=== PATIENT | female | born 1990 | race Caucasian/White ===

== ENCOUNTER → 2017-02-01 | Outpatient (CLI) | payer OTHER ==
[~2017-02-01] MED LIST: AMOX1TAB64 PO; CIPR500T3 PO; DOCU-30 PO; HYDR-3138 PO; HYDR-3240 PO; TAMS-11 PO; no meds per pt
== END | disposition home or self-care (01) ==
LOC: CFH 12:15
PROVIDERS: ATTEND Internal Medicine Nephrology
DX: N18.1 Chronic kidney disease, stage 1 (principal); D63.1 Anemia in chronic kidney disease; N13.30 Unspecified hydronephrosis; G89.4 Chronic pain syndrome
CPT/HCPCS: 76770

== ENCOUNTER 2020-02-24 16:15 | Outpatient (CLI) | payer OTHER ==
[~2020-02-24] VITALS: Ht 162.6 cm; Wt 70.4 kg
[~2020-02-24 16:15] MED LIST changes: +DOCU-131 PO; -DOCU-30 PO; -HYDR-3138 PO; +HYDR-3237 PO
[2020-02-24 16:53] VITALS: BP 108/60
[2020-02-24 17:32] LABS: MICROSCOPIC INDICATED
[2020-02-24 17:42] LABS: AMPHETAMINE SCREEN, URINE Negative (Negative); BARBITURATE SCREEN, URINE Negative (Negative); BENZODIAZEPINE SCREEN, URINE Negative (Negative); CANNABINOID SCREEN, URINE Negative (Negative); METHADONE SCREEN, URINE Negative (Negative); OPIATE SCREEN, URINE Negative (Negative)
[2020-02-24 17:43] LABS: COCAINE SCREEN, URINE Negative (Negative)
[2020-02-24] MEDS ORDERED: FERR324T18 PO ×2 (18:02→18:03)
[2020-02-24] MEDS ORDERED: PREN1TAB10 PO (18:02)
== END 2020-02-24 18:19 | disposition home or self-care (01) ==
LOC: LDOP 16:15
PROVIDERS: ATTEND Obstetrics & Gynecology
DX: O46.8X2 Other antepartum hemorrhage, second trimester (principal); Z3A.26 26 weeks gestation of pregnancy
CPT/HCPCS: 59025; 80307; 81001; 87086; 99211; G0463

== ENCOUNTER 2020-05-25 08:00 | Outpatient (CLI) | payer OTHER ==
[~2020-05-25 08:00] MED LIST changes: +FERR324T18 PO; +PREN1TAB10 PO
== END 2020-05-25 23:59 | disposition home or self-care (01) ==
LOC: LDOP 08:00
PROVIDERS: ATTEND Obstetrics & Gynecology
DX: Z01.818 Encounter for other preprocedural examination (principal); Z11.59 Encounter for screening for other viral diseases
CPT/HCPCS: 36415; 87635

== ENCOUNTER 2020-05-29 18:49 | Inpatient (IN) | payer BC, OTHER ==
[~2020-05-29] VITALS: Ht 162.6 cm; Wt 76.8 kg
[2020-06-03] MEDS ORDERED: OXYTOCIN 30U/ 0.9% NaCL 500ML 500 ML IV ONE (08:07)
[2020-06-03] MEDS ORDERED: OXYTOCIN 30U/ 0.9% NaCL 500ML 500 ML IV PRN (08:07)
[2020-06-03 08:18] VITALS: BP 107/76
[2020-06-03] MEDS ORDERED: ALUMINUM/MAG/SIMETHICONE 30 ML UDC PO PRN (08:30)
[2020-06-03] MEDS ORDERED: SODIUM CITRATE/CITRIC ACID 30 ML UDC PO PRN (08:30)
[2020-06-03] MEDS ORDERED: FENTANYL PF 100 MCG/2ML IV PRN (08:30)
[2020-06-03] MEDS: PLEASE ENTER HEIGHT AND WEIGHT MC SCH ×2 (08:30→16:30)
[2020-06-03] MEDS ORDERED: FENTANYL PF 100 MCG/2ML IVPush PRN (08:30)
[2020-06-03] MEDS ORDERED: TERBUTALINE 1 MG/ML, 1ML SQ PRN (08:30)
[2020-06-03] MEDS ORDERED: TERBUTALINE 1 MG/ML, 1ML IVPush PRN (08:30)
[2020-06-03] MEDS ORDERED: ONDANSETRON 2MG/ML, 2ML IVPush PRN (08:30)
[2020-06-03] MEDS ORDERED: METOCLOPRAMIDE 5 MG/ML, 2ML IVPush PRN (08:30)
[2020-06-03] MEDS ORDERED: MISOPROSTOL 200 MCG TABLET ONE (08:45)
[2020-06-03] MEDS ORDERED: LIDOCAINE 1%, 20ML ONE (08:45)
[2020-06-03] MEDS ORDERED: OXYTOCIN 30U/ 0.9% NaCL 500ML 500 ML ONE (08:45)
[2020-06-03] MEDS: LACTATED RINGERS 1,000 ML IV SCH ×2 (08:57→16:07)
[2020-06-03 09:01] LABS: BASOPHILS # (AUTO) 0.03 x10^3/uL (0-0.1); BASOPHILS % (AUTO) 0 % (0-1); EOSINOPHILS # (AUTO) 0.03 x10^3/uL (0-0.4); EOSINOPHILS % (AUTO) 0 % (1-7); LYMPHOCYTES # (AUTO) 1.55 x10^3/uL (1-3.4); LYMPHOCYTES % (AUTO) 18 % (22-44); MD NO; MEAN CORPUSCULAR HEMOGLOBIN 29.7 pg (27.0-34.8); MEAN CORPUSCULAR HGB CONC 33.1 g/dL (32.4-35.8); MEAN CORPUSCULAR VOLUME 89.8 fL (80-100); MONOCYTES # (AUTO) 0.76 x10^3/uL (0.2-0.8); MONOCYTES % (AUTO) 9 % (2-9); NEUTROPHILS # (AUTO) 6.27 x10^3/uL (1.8-6.8); NEUTROPHILS % (AUTO) 73 % (42-75); PLATELET COUNT 202 x10^3/uL (130-400); RED BLOOD COUNT 3.89 x10^6/uL (3.82-5.3); RED CELL DISTRIBUTION WIDTH 12.8 % (9.6-15.2)
[2020-06-03 09:07] LABS: AMPHETAMINE SCREEN, URINE Negative (Negative); BARBITURATE SCREEN, URINE Negative (Negative); BENZODIAZEPINE SCREEN, URINE Negative (Negative); CANNABINOID SCREEN, URINE Negative (Negative); COCAINE SCREEN, URINE Negative (Negative); METHADONE SCREEN, URINE Negative (Negative); OPIATE SCREEN, URINE Negative (Negative)
[2020-06-03] MEDS ORDERED: NEWBORN KIT ONE (09:30)
[2020-06-03] MEDS: D5%-LACTATED RINGERS 1,000 ML IV SCH (16:07)
[2020-06-03] MEDS ORDERED: TERBUTALINE 1 MG/ML, 1ML ONE (19:54)
[2020-06-03] MEDS ORDERED: FENTANYL/BUPIV./NS/PF 250 ML EPIDCONT ONE (22:50)
[2020-06-03] MEDS ORDERED: LACTATED RINGERS 1,000 ML IV SCH (23:26)
[2020-06-03] MEDS ORDERED: FENTANYL/BUPIV./NS/PF 250 ML EPIDCONT SCH (23:26)
[2020-06-03] MEDS ORDERED: LACTATED RINGERS 1,000 ML IVBOLUS PRN (23:30)
[2020-06-03] MEDS ORDERED: EPHEDRINE 50 MG/ML, 1ML IVPush PRN (23:30)
[2020-06-03] MEDS ORDERED: NALOXONE 0.4 MG/ML, 1ML IVPush PRN (23:30)
[2020-06-04] MEDS: LACTATED RINGERS 1,000 ML IV SCH (00:07)
[2020-06-04] MEDS: D5%-LACTATED RINGERS 1,000 ML IV SCH ×2 (00:07→00:44)
[2020-06-04] MEDS ORDERED: EPHEDRINE 50 MG/ML, 1ML ONE (00:12)
[2020-06-04] MEDS: PLEASE ENTER HEIGHT AND WEIGHT MC SCH (00:30)
[2020-06-04] MEDS ORDERED: OXYTOCIN 30U/ 0.9% NaCL 500ML 500 ML ONE (09:40)
[2020-06-04] MEDS: OXYTOCIN 30U/ 0.9% NaCL 500ML 500 ML IV SCH ×2 (10:03→20:03)
[2020-06-04] MEDS ORDERED: ACETAMINOPHEN 325 MG TABLET ONE (10:19)
[2020-06-04] MEDS: ACETAMINOPHEN 325 MG TABLET PO PRN ×3 (10:21→20:41)
[2020-06-04] MEDS ORDERED: RHOGAM FROM BLOOD BANK 1 NOTE EA IM/IV ONE (10:30)
[2020-06-04] MEDS ORDERED: MISOPROSTOL 200 MCG TABLET PR PRN (10:30)
[2020-06-04] MEDS ORDERED: MAGNESIUM HYDROXIDE 8%, 30ML UDC PO PRN (10:30)
[2020-06-04] MEDS ORDERED: HYDROcodone/APAP 5/325 TABLET PO PRN ×2 (10:30)
[2020-06-04] MEDS ORDERED: ACETAMINOPHEN 325 MG TABLET PO PRN (10:30)
[2020-06-04] MEDS ORDERED: MEASLES,MUMPS&RUBELLA VACC/PF 0.5 ML SQ-VACC PRN (10:30)
[2020-06-04] MEDS: DOCUSATE 100 MG CAPSULE PO PRN (16:42)
[2020-06-04 17:32] LABS: BASOPHILS # (AUTO) 0.02 x10^3/uL (0-0.1); BASOPHILS % (AUTO) 0 % (0-1); EOSINOPHILS # (AUTO) 0.01 x10^3/uL (0-0.4); EOSINOPHILS % (AUTO) 0 % (1-7); LYMPHOCYTES # (AUTO) 1.29 x10^3/uL (1-3.4); LYMPHOCYTES % (AUTO) 7 % (22-44); MD SCAN; MEAN CORPUSCULAR HEMOGLOBIN 30.1 pg (27.0-34.8); MEAN CORPUSCULAR HGB CONC 33.4 g/dL (32.4-35.8); MEAN CORPUSCULAR VOLUME 90.1 fL (80-100); MEAN PLATELET VOLUME 10.3 fL (7.4-10.4); MONOCYTES # (AUTO) 0.86 x10^3/uL (0.2-0.8); MONOCYTES % (AUTO) 5 % (2-9); NEUTROPHILS # (AUTO) 16.17 x10^3/uL (1.8-6.8); NEUTROPHILS % (AUTO) 88 % (42-75); PLATELET COUNT 183 x10^3/uL (130-400); RED BLOOD COUNT 3.82 x10^6/uL (3.82-5.3); RED CELL DISTRIBUTION WIDTH 12.8 % (9.6-15.2)
[2020-06-04 20:00] VITALS: BP 105/69
[2020-06-05] VITALS: BP 102/67
[2020-06-05] MEDS: ACETAMINOPHEN 325 MG TABLET PO PRN ×3 (01:00→09:23)
[2020-06-05 04:12] VITALS: BP 100/65
[2020-06-05] MEDS: OXYTOCIN 30U/ 0.9% NaCL 500ML 500 ML IV SCH (06:03)
[2020-06-05] MEDS: DOCUSATE 100 MG CAPSULE PO PRN (07:21)
[2020-06-05 08:00] VITALS: BP 108/61
[2020-06-05] MEDS ORDERED: PRENATAL VIT/IRON/FA 1 EACH TABLET PO SCH (09:00)
[2020-06-05] MEDS ORDERED: HYDR-3240 PO (09:42)
== END 2020-06-05 13:25 | disposition home or self-care (01) | DRG 807 ==
LOC: LDIP 06-03 08:03 → 2NW 06-04 11:29
PROVIDERS: ADMIT Obstetrics & Gynecology; ATTEND Obstetrics & Gynecology
PROC: 10E0XZZ Delivery of Products of Conception, External Approach (ICD-10-PCS; principal; 2020-06-04)
PROC: 0KQM0ZZ Repair Perineum Muscle, Open Approach (ICD-10-PCS; 2020-06-04)
PROC: 3E0R3BZ Introduction of Anesthetic Agent into Spinal Canal, Percutaneous Approach (ICD-10-PCS; 2020-06-04)
PROC: 00HU33Z Insertion of Infusion Device into Spinal Canal, Percutaneous Approach (ICD-10-PCS; 2020-06-04)
PROC: 10907ZC Drainage of Amniotic Fluid, Therapeutic from Products of Conception, Via Natural or Artificial Opening (ICD-10-PCS; 2020-06-04)
PROC: 3E033VJ Introduction of Other Hormone into Peripheral Vein, Percutaneous Approach (ICD-10-PCS; 2020-06-04)
DX: O48.0 Post-term pregnancy (principal); Z37.0 Single live birth; Z3A.40 40 weeks gestation of pregnancy; O99.02 Anemia complicating childbirth; D64.9 Anemia, unspecified; O70.1 Second degree perineal laceration during delivery; O69.81X0 Labor and delivery complicated by cord around neck, without compression, not applicable or unspecified; Z20.828 Contact with and (suspected) exposure to other viral communicable diseases
CPT/HCPCS: 36415; J7121; 80307; 85025; 86592; 86850; 86900; 87635; G0378; J2590; J7120

== ENCOUNTER 2020-09-18 06:30 | Emergency (ER) | payer OTHER ==
[~2020-09-18] VITALS: Ht 162.6 cm; Wt 70.0 kg
--- NOTE | 2020-09-18 06:47 | NUR ---
TASK RN: PT REPORTS LAST WEEK "FELT LIKE A KNIFE WAS STABBING IN MY RIGHT SIDE". PT REPORTS RIGHT SIDE IS ACHING NOW AND NOT SEVERE LAST WEEK. STATES TAKING A DEEP BREATH IS A CHALLENGE AT THIS TIME WHICH WAS THE SAME SYMPTOM SHE HAD LAST TIME. PT DENIES BURNING OR CHANGES IN URINATION. PT NAD, SITTING UP ON THE GURNEY, PLACED ON SPO2/BP MONITORING. UA SENT TO LAB. WCANIYAH. JOE LOREDO MD AT BS. PT PROVIDED WARM BLANKETS FOR COMFORT, BED IN LOWEST, CALL LIGHT ON LAP
--- NOTE | 2020-09-18 06:54 | NUR ---
bedside report to Chela WOODY, pt care transferred at this time.
[2020-09-18 07:05] LABS: MICROSCOPIC INDICATED
[2020-09-18 07:07] LABS: HCG UR SG 1.015 (1.003-1.030)
[2020-09-18 07:16] LABS: BASOPHILS % (AUTO) 1 % (0-1); EOSINOPHILS % (AUTO) 1 % (1-7); LYMPHOCYTES % (AUTO) 34 % (22-44); MEAN CORPUSCULAR HEMOGLOBIN 30.4 pg (27.0-34.8); MEAN CORPUSCULAR HGB CONC 34.3 g/dL (32.4-35.8); MEAN PLATELET VOLUME 8.2 fL (7.4-10.4); MONOCYTES % (AUTO) 9 % (2-9); NEUTROPHILS % (AUTO) 55 % (42-75); PLATELET COUNT 321 x10^3/uL (130-400); RED BLOOD COUNT 4.28 x10^6/uL (3.82-5.3); RED CELL DISTRIBUTION WIDTH 12.9 % (9.6-15.2)
[2020-09-18 07:23] LABS: MD NO
[2020-09-18 07:30] LABS: ALANINE AMINOTRANSFERASE 26 U/L (12-78); ALBUMIN 4.1 g/dL (3.4-5.0); ANION GAP 5 mmol/L (5-15); CALCIUM 8.6 mg/dL (8.5-10.1); CHLORIDE 108 mmol/L (98-107); CREATININE 0.87 mg/dL (0.55-1.02)
[2020-09-18 07:32] LABS: ALKALINE PHOSPHATASE 89 U/L (45-117); BILIRUBIN,TOTAL 0.2 mg/dL (0.2-1.0)
--- NOTE | 2020-09-18 08:03 | NUR ---
Joanie chacon in ED - 09/18/20 at 0804 by ALIRIO US AT BEDSIDE AT THIS TIME, VSS, NAD
--- NOTE | 2020-09-18 08:04 | NUR ---
US AT BEDSIDE AT THIS TIME, VSS, NAD
--- NOTE | 2020-09-18 08:32 | NUR ---
FLOAT RN: PT DISCHARGED HOME IN A STABLE CONDITION. DC INSTRUCTIONS DISCUSSED WITH PT. PT VERBALIZED UNDERSTANDING. NO FURTHER QUESTIONS OR CONCERNS EXPRESSED AT THAT TIME. PT AMBULATED WITH RN TO DC DESK. STEADY GAIT.
[2020-09-18 08:33] VITALS: BP 108/70
== END 2020-09-18 08:35 | disposition home or self-care (01) ==
LOC: ED 07:07
DX: R10.11 Right upper quadrant pain (principal)
CPT/HCPCS: 36415; 76700; 80053; 81001; 81025; 83690; 85025; 87086; 99284